=== PATIENT | female | born 1960 | race Caucasian/White ===

== ENCOUNTER 2021-08-28 08:56 | Day surgery (SDC) | payer BC, SELFPAY ==
[2021-08-28] VITALS (8 sets, daily range): BP systolic 74–132; BP diastolic 59–99; PULSE 63–88; RESP 16–18; TEMP 36.1–37.1; O2SAT 63–100; BMI 26.0
[2021-08-28] MEDS: Lactated Ringers 1,000 ML 15 ML IV (09:15)
--- NOTE | 2021-08-28 10:10 | HP.PCM_ITS ---
[facility] - General General Date of Service: 08/28/21 Chief Complaint: Screening for intestinal cancer HPI Narrative PARVEEN GRIMES, is a 60 F who presents the patient presents via open exudate for screening colonoscopy. She has no current health concerns. Denies any bright red blood per rectum or melena. No abdominal pain. [facility] Medical History Alcohol use Anxiety and depression Arthritis Benign essential hypertension Cardiology follow-up encounter Heartburn History of hiatal hernia Hx of pituitary neoplasm Leg cramps Lumbar facet arthropathy Lumbar radiculopathy Mixed hyperlipidemia Non-smoker Piriformis syndrome Pituitary adenoma Home Medications alprazolam 0.25 mg tablet 0.25 mg PO QHS PRN Anxiety 07/06/21 [History Last Taken Unknown] fluoxetine 20 mg capsule 20 mg PO DAILY 07/06/21 [History Last Taken Unknown] geriatric [id number]-ofyc-ocxs 1 tab PO DAILY 07/06/21 [History Last Taken Unknown] hydrochlorothiazide 12.5 mg capsule 12.5 mg PO DAILY 07/06/21 [History Last Taken Unknown] losartan 50 mg tablet 50 mg PO DAILY 07/06/21 [History Last Taken Unknown] simvastatin 20 mg tablet 20 mg PO QHS 07/06/21 [History Last Taken Unknown] Allergy/AdvReac Type Severity Reaction Status Date / Time erythromycin base Allergy Severe PT UNSURE Verified 08/28/21 09:20 OF REACTION Family History Mother Diabetes Father Prostate CA Thyroid disorder Rheumatoid arthritis Parkinson disease High cholesterol Grandmother CVA (cerebral vascular accident) Surgical History History of colonoscopy History of root canal procedure Social History Smoking Status: Never smoker Electronic Cigarette Use: not used substance use type: does not use ROS Constitutional Constitutional: Reports systems reviewed and no addt'l complaints, except as documented Cardiovascular Cardiovascular: Denies chest pain Respiratory/Chest Respiratory/Chest: Denies shortness of breath at rest Gastrointestinal Gastrointestinal: Denies abdominal pain, change in bowel habits, hematochezia or melena Vital Signs Vital Signs Vital Signs: 08/28/21 09:29 08/28/21 09:29 Temperature 98.7 F Temperature Source Temporal Pulse Rate 88 Respiratory Rate 18 Respiratory Pattern Normal Blood Pressure 132/99 H Blood Pressure Mean 110 Blood Pressure Source Monitor Blood Pressure Position Semi-Fowlers Blood Pressure Location Right Arm Pulse Ox 99 Oxygen Delivery Method Room Air Weight Weight: 147 lb 0.773 oz Body Mass Index (BMI) 26.0 Physical Exam Const alert, oriented x3 and no apparent distress General Appearance: cooperative and comfortable Eyes General Eye: normal appearance of both eyes Neck General: normal visual inspection Chest inspection of chest normal Resp Effort and Inspection: able to speak in complete sentences and symmetric chest movement Auscultation: clear to auscultation bilaterally Cardio regular rate and regular rhythm GI soft to palpation, non-tender and non-distended Extremity no calf tenderness Neuro oriented x3 Psych thought process normal Assessment & Plan Assessment/Plan (1) Encounter for screening for malignant neoplasm of colon: PLAN: Plan I plan to proceed with a screening colonoscopy with possible biopsy or polypectomy as indicated. She is aware of the technique, benefit, risk, alternatives. She has had an opportunity to ask and have questions answered. She presents for an open access today. Dajuan Jett M.D., F.A.C.S.
--- NOTE | 2021-08-28 11:07 | OP.COLON_ITS ---
Patient Name: Svetlana Barber Procedure Date: 08/28/2021 10:41 AM Date of : 1960 Age: 60 Procedure: Colonoscopy Indications: Screening for colorectal malignant neoplasm Providers: Dajuan Jett MD Medicines: See the Anesthesia note for documentation of the administered medications Patient Profile: Last Colonoscopy: December 2010. Complications: No immediate complications. Procedure: Pre-Anesthesia Assessment: - Prior to the procedure, a History and Physical was performed, and patient medications and allergies were reviewed. The patient's tolerance of previous anesthesia was also reviewed. The risks and benefits of the procedure and the sedation options and risks were discussed with the patient. All questions were answered, and informed consent was obtained. Prior Anticoagulants: The patient has taken no previous anticoagulant or antiplatelet agents. ASA Grade Assessment: II - A patient with mild systemic disease. After reviewing the risks and benefits, the patient was deemed in satisfactory condition to undergo the procedure. After I obtained informed consent, the scope was passed under direct vision. Throughout the procedure, the patient's blood pressure, pulse, and oxygen saturations were monitored continuously. The pediatric colonoscope was introduced through the anus and advanced to the cecum, identified by appendiceal orifice and ileocecal valve. The colonoscopy was performed without difficulty. The patient tolerated the procedure well. The quality of the bowel preparation was good. The ileocecal valve and the appendiceal orifice were photographed. Scope In: 10:46:08 AM Scope Withdrawal Time 0 hours 7 minutes 26 seconds Scope Out: 11:01:53 AM Total Procedure Duration Time 0 hours 15 minutes 45 seconds Findings: The digital rectal exam findings include non-thrombosed external hemorrhoids, non-thrombosed internal hemorrhoids and internal hemorrhoids that prolapse with straining, but spontaneously regress to the resting position (Grade II). The colon (entire examined portion) was mildly tortuous. Advancing the scope required changing the patient to a supine position and using manual pressure. The exam was otherwise without abnormality. Impression: - Non-thrombosed external hemorrhoids, non-thrombosed internal hemorrhoids and internal hemorrhoids that prolapse with straining, but spontaneously regress to the resting position (Grade II) found on digital rectal exam. - Tortuous colon. - The examination was otherwise normal. - No specimens collected. Recommendation: - Discharge patient to home. - Resume previous diet. - Continue present medications. - Repeat colonoscopy in 10 years for screening purposes. Procedure Code(s): --- Professional --- 72083, Colonoscopy, flexible; diagnostic, including collection of specimen(s) by brushing or washing, when performed (separate procedure) Diagnosis Code(s): --- Professional --- Z12.11, Encounter for screening for malignant neoplasm of colon K64.1, Second degree hemorrhoids K64.4, Residual hemorrhoidal skin tags Q43.8, Other specified congenital malformations of intestine CPT copyright 2017 [employer]. All rights reserved. The codes documented in this report are preliminary and upon inpatient coder review may be revised to meet current compliance requirements. Dajuan Jett MD 08/28/2021 11:06:51 AM This report has been signed electronically. Number of Addenda: 0 Note Initiated On: 08/28/2021 10:41 AM
--- NOTE | 2021-08-28 11:08 | OP.CCLET_ITS ---
08/28/2021 Alfred Purdy MD Re : Colonoscopy procedure for Svetlana Barber Dear Dr. Purdy This procedure was performed on Saturday, August 28, 2021. My impressions and recommendations are as follows: Impressions : - Non-thrombosed external hemorrhoids, non-thrombosed internal hemorrhoids and internal hemorrhoids that prolapse with straining, but spontaneously regress to the resting position (Grade II) found on digital rectal exam. - Tortuous colon. - The examination was otherwise normal. - No specimens collected. Recommendations : - Discharge patient to home. - Resume previous diet. - Continue present medications. - Repeat colonoscopy in 10 years for screening purposes. My findings are described in the full procedure note, which is enclosed. If I can be of further assistance, please feel free to contact me at Doctor phone number(s): Work: . Sincerely, Dajuan Jett MD 08/28/2021 11:06:51 AM This report has been signed electronically.
== END 2021-08-28 12:00 | disposition home or self-care (01) ==
LOC: EN 09:04 → AC 09:05
PROVIDERS: PCP Family Medicine; Referring Provider Family Medicine; Visit Provider Surgery
PROC: 0DJD8ZZ Inspection of Lower Intestinal Tract, Via Natural or Artificial Opening Endoscopic (ICD-10-PCS; CPT 45378; principal; 2021-08-28 09:55)
DX: Z12.11 Encounter for screening for malignant neoplasm of colon (principal); Q43.8 Other specified congenital malformations of intestine; K64.1 Second degree hemorrhoids; K64.4 Residual hemorrhoidal skin tags; I10 Essential (primary) hypertension; F32.A Depression, unspecified; F41.9 Anxiety disorder, unspecified; Z79.899 Other long term (current) drug therapy
CPT/HCPCS: 45378; J7120; J2405

== ENCOUNTER 2024-05-02 08:00 | Outpatient (RCR) | payer MEDICARE, OTHER, SELFPAY ==
--- NOTE | 2024-02-22 08:01 | HP.PTEVAL ---
Patient's Visit Information Visit Information Visit Information: PARVEEN GRIMES is a 63 year old F referred to Physical Therapy by GEREMIAS OSULLIVAN with a diagnosis of S/P L/S surgery 11/28. 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 Pt reports she has more constant pain than she had prior to the surgery, but she was told it would take a while for the nerve to re awaken. Pt denies sleep difficulty at this time. Pt is not taking any pain meds. Pt denies prior Hx of L/S surgery prior to this surgery. Pt reports she still has some tingling and numbness in R LE from the glute region to her gastroc region. Pt reports a little tingling in her L gastroc region. Pt reports her R LE pain is always worse than her L LE pain. Pt reports prolonged standing and walking tends to decrease her pain. Pt notes sitting down helps to decrease her pain. Pt reports she is limited now with lifting objects and bending forward secondary to her pain. 3/10 LBP while sitting here at rest, 7/10 at worst. pt is retired at this time. Pain LBP and R LE: Pain Intensity (Out of 10): 3 Pain Intensity Range: 7 Objective Objective: Neuro: B LE sensation is WNL to light touch. B patellar reflex= 3/3 MMT: B LE's are equal when compared bilaterally. 5/5 throughout ROM: Pt is minimally limited with L/S extension and moderately limited with R SB. All other motions are WNL Repeated movements: 6 min walk test 1400 feet Balance/Special Test Scores Oswestry Low Back Score: 8 Goals Goal 1:: Decrease LBP x 50% to aid with prolonged standing Goal Time Frame: 4-6 Weeks Goal 2:: Decrease the frequency and intensity of R LE radiculopathy x 25-50% to aid with ambulation Goal Time Frame: 4-6 Weeks Goal 3:: I with HEP Goal Time Frame: 4-6 Weeks Rehabilitation Potential Physical Therapy Diagnosis: Pt has LBP, R LE radiculopathy, and intolerance for prolonged ambulation secondary to L/S surgery Rehabilitation Potential: Good Anticipated Interventions Patient/Client Instruction: Educate patient on: Condition and Plan of Care For the Purpose of:: To improve self management Therapeutic Exercise to Include: Strength training, Endurance training, Body mechanics, Postural training and Dynamic Lumbar Stabilization For the Purpose of:: To decrease pain, To increase ROM and To improve muscle performance and motor function Text: Thank you for the opportunity to evaluate your patient. For Medicare and Medicare HMO plans, please review the plan of care and approve it. It will need to be FAXED BACK to us at [phone] for Medicare purposes. For Medicare only, by signing this I certify the plan of care. Please let me know if there are questions or concerns regarding this plan of care. Physician Signature: Date:
--- NOTE | 2024-03-28 07:58 | HP.PTREVAL ---
Re-Evaluation Intro: GEREMIAS OSULLIVAN, It has been my pleasure to treat PARVEEN GRIMES over the last 12 visits for S/P L/S surgery 11/28. Please see the progress note below for an update on the physical therapy plan of care! Subjective Subjective: I am feeling better overall. I still have some pain in my glute and leg which might be from the ex's Objective Objective/Function: LBP ranges from 2-3/10 R LE radiculopathy is still present, but much improved. Pt is I with HEP Rx goals are achieved Plan Plan Plan: Pt to continue with HEP. Recheck or discharge in 4 weeks. Balance/Gait/Functional tests Balance/Special Test Scores Oswestry Low Back Score: 5 Goals Goals Goal 1:: Decrease LBP x 50% to aid with prolonged standing Goal Time Frame: 4-6 Weeks Goal Progress: Goal Met Goal 2:: Decrease the frequency and intensity of R LE radiculopathy x 25-50% to aid with ambulation Goal Time Frame: 4-6 Weeks Goal Progress: Goal Met Goal 3:: I with HEP Goal Time Frame: 4-6 Weeks Goal Progress: Goal Met Anticipated Interventions Anticipated Interventions Patient/Client Instruction: Educate patient on: Condition and Plan of Care For the Purpose of:: To improve self management Therapeutic Exercise to Include: Strength training, Endurance training, Body mechanics, Postural training and Dynamic Lumbar Stabilization For the Purpose of:: To decrease pain, To increase ROM and To improve muscle performance and motor function Re-Evaluation Ending Re-evaluation ending: Please do not hesitate to contact me at [phone] by phone or if you have questions or concerns regarding this new plan of care! Sincerely, Logan Haney, PT, ATC
--- NOTE | 2024-05-02 08:28 | HP.PTDCSUM ---
Discharge Summary D/C summary: It has been my pleasure to treat PARVEEN GRIMES referred by GEREMIAS OSULLIVAN, with the diagnosis of S/P L/S surgery 11/28 for a total of 13 visit(s). Discharge Date: Please see the following information for a summary of their discharge status. Subjective Subjective: I feel pretty good. I feel like I can do them now on my own. Pain LBP and R LE: Pain Intensity (Out of 10): 4 Overall Improvement % Improvement: 80 Objective Objective/Function: LBP 04/16, R hip pain 3-4 Pt is now I with hep L/S ROM is now WNL Rx goals are achieved Goals Goal 1:: Decrease LBP x 50% to aid with prolonged standing Goal Progress: Goal Met Goal 2:: Decrease the frequency and intensity of R LE radiculopathy x 25-50% to aid with ambulation Goal Progress: Goal Met Goal 3:: I with HEP Goal Progress: Goal Met Plan Plan: Discharge to HEP D/C Information d/c sentence: If there are questions or concerns regarding this patient's physical therapy, please feel free to call me at [phone]. Thank you for the referral of this patient. Sincerely, Logan Haney, PT, ATC Balance/Gait/Functional tests Balance/Special Test Scores Oswestry Low Back Score: 4 Improvement % Improvement: 80
== END 2024-05-02 09:53 | disposition home or self-care (01) ==
LOC: PT 08:00
PROVIDERS: PCP Family Medicine
DX: M96.1 Postlaminectomy syndrome, not elsewhere classified (principal)
CPT/HCPCS: 97110; 97161; 97530